=== PATIENT | male | born 1940 | race Caucasian/White ===

== ENCOUNTER 2017-09-29 11:39 | Emergency (ER) | payer MEDICARE ==
[~2017-09-29] VITALS: Ht 177.8 cm; Wt 83.9 kg
[2017-09-29] MEDS ORDERED: DILT120 PO (11:51)
[2017-09-29] MEDS ORDERED: LEVSOD50 PO (11:51)
[2017-09-29] MEDS ORDERED: LOVA40 (11:51)
[2017-09-29] MEDS ORDERED: TAMS.4ER PO (11:51)
[2017-09-29 12:30] LABS: Calcium, Ionized (POC) 1.01 mmol/L (1.10-1.46); Chloride (POC) 106 mmol/L (98-108); Glucose (ISTAT POC) 82 mg/dL (70-99); Hemoglobin (POC) 14.6 g/dL (13.5-17.5); Sodium (POC) 144 mmol/L (135-148); Total CO2 (POC) 26 mmol/L (21-32)
== END 2017-09-29 13:12 | disposition home or self-care (01) ==
LOC: ER 11:39
PROVIDERS: Emergency Medicine
DX: I47.1 Supraventricular tachycardia (principal); Z88.2 Allergy status to sulfonamides; Z88.8 Allergy status to other drugs, medicaments and biological substances; Z79.899 Other long term (current) drug therapy
CPT/HCPCS: 80047; 83735; 85014; 93005; 93010; 99284